=== PATIENT | male | born 1970 ===

== ENCOUNTER 2018-03-02 09:52 | Emergency (ER) | payer BC ==
[2018-03-02 10:22] VITALS: BP 157/80
--- NOTE | 2018-03-02 10:27 | UC ---
Lower Extremity/Ankle HPI - HPI Summary HPI Summary: 47-year-old male comes to clinic today with a chief complaint of an injury to the right great toe. Yesterday he dropped a sheet of plywood on his right great toe. It hurt right away. Pain is increased over the next several hours. He also notices a bruise underneath the toenail. Today the pain is slightly less. Pain is worse with ambulation better with rest and elevation. There's been no bleeding. - History of Current Complaint Chief Complaint: UCLowerExtremity Stated Complaint: FOOT INJURY Time Seen by Provider: 03/02/18 10:17 Pain Intensity: 7 - Allergies/Home Medications Allergies/Adverse Reactions: Allergies Allergy/AdvReac Type Severity Reaction Status Date / Time No Known Allergies Allergy Verified 03/02/18 10:21 Home Medications: Home Medications Ibuprofen TAB* [Motrin TAB* 400 MG] 400 mg PO Q6H PRN 03/02/18 [History Confirmed 03/02/18] PMH/Surg Hx/FS Hx/Imm Hx Previously Healthy: Yes - Surgical History Surgical History: None - Family History Known Family History: Positive: Non-Contributory - Social History Alcohol Use: Daily Alcohol Amount: 1-2 drinks/day Substance Use Type: None Smoking Status (MU): Never Smoked Tobacco Review of Systems All Other Systems Reviewed And Are Negative: Yes Constitutional: Positive: Negative Skin: Positive: Bruising - see hpi Eyes: Positive: Negative ENT: Positive: Negative Respiratory: Positive: Negative Cardiovascular: Positive: Negative Gastrointestinal: Positive: Negative Motor: Positive: Negative Neurovascular: Positive: Negative Musculoskeletal: Positive: Other: - see hpi Neurological: Positive: Negative Psychological: Positive: Negative Is Patient Immunocompromised?: No Physical Exam Triage Information Reviewed: Yes Appearance: Well-Appearing, No Pain Distress, Well-Nourished Vital Signs: Initial Vital Signs Temp 97.8 F 03/02/18 10:11 Pulse 56 03/02/18 10:11 Resp 16 03/02/18 10:11 BP 157/80 03/02/18 10:11 Pulse Ox 98 03/02/18 10:11 Vital Signs Reviewed: Yes Eye Exam: Normal Eyes: Positive: Conjunctiva Clear Neck exam: Normal Neck: Positive: Supple Respiratory: Positive: No respiratory distress Musculoskeletal: Positive: Strength Intact, ROM Intact, Other: - Right great toe with mild swelling and tender to palpation on dorsum. FROM. Eccymosis under great toe nail that extends to lateral aspect of the distal toe nail without any active bleeding. Neurological Exam: Normal Neurological: Positive: Alert, Muscle Tone Normal Psychological Exam: Normal Psychological: Positive: Age Appropriate Behavior Skin: Positive: Other - eccymosis under right great toe nail Lower Extremity Course/Dx - Course Course Of Treatment: Be ecchymosis underneath the great toe nail does extend to the end of the toenail. Appears the ecchymosis is in the tissue rather than a subungual hematoma. Also the patient's pain is slightly improved therefore I did not perform nail trephination. Order Information: TOE RIGHT GREAT. Accession Number: [id number]. CPT: 78444. Indication: Crush injury to RIGHT great toe yesterday. Pain. Comparison: No relevant prior exams available on the [facility] for comparison. Technique: 3 views of the RIGHT great toe. REPORT AND IMPRESSION: #. Soft tissue edema about the great toe distally. No subcutaneous emphysema or. conspicuous foreign body. Accessory ossicle at the volar aspect of the IP joint. Negative. for fracture or malalignment. . <Electronically signed by David Kerr MD in OV> 03/02/18 1050. I discussed the x-ray report with the patient. The reading as no fracture. Here in clinic report on a postop shoe and he is neurovascularly intact after the nurse put on a postop shoe. Plan is ice elevation and use the postop shoe as needed. If the toe is not improving as expected he is to follow-up with orthopedics. - Differential Dx/Diagnosis Provider Diagnosis: Crushing injury of right great toe Discharge - Sign-Out/Discharge Documenting (check all that apply): Patient Departure All imaging exams completed and their final reports reviewed: Yes - Discharge Plan Condition: Stable Disposition: HOME Patient Education Materials: Crush Injury (ED) Referrals: Darrell Ellis MD [Primary Care Provider] - Chaparro Hager MD [Medical Doctor] - Additional Instructions: FOLLOW UP WITH ORTHOPEDICS, DR HAGER, IF NOT COMPLETELY IMPROVED. GET RECHECKED FOR ANY WORSENING OF YOUR CONDITION OR QUESTIONS OR CONCERNS. - Billing Disposition and Condition Condition: STABLE Disposition: Home
== END 2018-03-02 11:26 | disposition home or self-care (01) ==
LOC: UCEAST 09:52
DX: S90.111A Contusion of right great toe without damage to nail, initial encounter (principal); W20.8XXA Other cause of strike by thrown, projected or falling object, initial encounter; Y92.9 Unspecified place or not applicable
CPT/HCPCS: 99212; G0463

== ENCOUNTER 2018-03-08 14:52 | Emergency (ER) | payer BC ==
[2018-03-08 15:17] VITALS: BP 118/74
--- NOTE | 2018-03-08 15:33 | UC ---
Lower Extremity/Ankle HPI - HPI Summary HPI Summary: 47-year-old male comes to clinic today with chief complaint of right great toe swelling. On March 02, 2018 he dropped an object on his right great toe. He was seen here and had an x-ray which did not show any signs of fracture. Since that time there's been some more swelling in the proximal great toe nail bed. Pain is mild. Pain is worse with palpation and ambulation. With the swelling the patient was concerning might lose the toenail and wondered if there was anything else that can be done about it. No fevers or chills no drainage. - History of Current Complaint Chief Complaint: UCLowerExtremity Stated Complaint: TOE INJURY Time Seen by Provider: 03/08/18 15:15 Pain Intensity: 0 - Allergies/Home Medications Allergies/Adverse Reactions: Allergies Allergy/AdvReac Type Severity Reaction Status Date / Time No Known Allergies Allergy Verified 03/08/18 15:13 PMH/Surg Hx/FS Hx/Imm Hx Previously Healthy: Yes - Surgical History Surgical History: None - Family History Known Family History: Positive: Non-Contributory - Social History Alcohol Use: Daily Alcohol Amount: 1-2 drinks/day Substance Use Type: None Smoking Status (MU): Never Smoked Tobacco Review of Systems All Other Systems Reviewed And Are Negative: Yes Constitutional: Positive: Negative Skin: Positive: Bruising - rt great toe Eyes: Positive: Negative ENT: Positive: Negative Respiratory: Positive: Negative Cardiovascular: Positive: Negative Gastrointestinal: Positive: Negative Motor: Positive: Negative Neurovascular: Positive: Negative Musculoskeletal: Positive: Other: - see hpi Neurological: Positive: Negative Psychological: Positive: Negative Is Patient Immunocompromised?: No Physical Exam Triage Information Reviewed: Yes Appearance: Well-Appearing, No Pain Distress, Well-Nourished Vital Signs: Initial Vital Signs Temp 98.6 F 03/08/18 15:13 Pulse 56 03/08/18 15:13 Resp 18 03/08/18 15:13 BP 118/74 03/08/18 15:13 Pulse Ox 98 03/08/18 15:13 Vital Signs Reviewed: Yes Eye Exam: Normal Eyes: Positive: Conjunctiva Clear Neck exam: Normal Neck: Positive: Supple Respiratory: Positive: No respiratory distress Musculoskeletal: Positive: Other: - Right great toe has some swelling underneath the great toenail that appears to be blood. There is no drainage. The proximal aspect of the great toenail is raised up and it appears that it will be coming off on its own in the near future. There is mild erythema at the base of the toenail no pus no streaking. Normal capillary refill toe is got full range of motion. Neurological Exam: Normal Neurological: Positive: Alert, Muscle Tone Normal Psychological Exam: Normal Psychological: Positive: Age Appropriate Behavior Skin: Positive: Other - eccymosis rt great toe Lower Extremity Course/Dx - Course Course Of Treatment: At this time we will stop start Keflex for the possibility of infection however it's not obvious that there is an infection at this time. We discussed my expectation that the toenail would come off on its own. Plan is to keep it protected and follow-up with podiatry. Return here if anything gets worse or any questions or concerns. - Differential Dx/Diagnosis Provider Diagnosis: Contusion of right great toe with damage to nail Discharge - Sign-Out/Discharge Documenting (check all that apply): Patient Departure All imaging exams completed and their final reports reviewed: No Studies - Discharge Plan Condition: Stable Disposition: HOME Prescriptions: Cephalexin CAP* [Keflex CAP*] 500 mg PO QID #40 cap Mupirocin 1 applic TP BID #22 gm Patient Education Materials: Nail Avulsion (ED), Crush Injury (ED) Referrals: Darrell Ellis MD [Primary Care Provider] - Milly Arroyo DPM [Doctor of Podiatric Medicine] - Additional Instructions: FOLLOW UP WITH PODIATRY. GET RECHECKED FOR ANY WORSENING OF YOUR CONDITION OR QUESTIONS OR CONCERNS. - Billing Disposition and Condition Condition: STABLE Disposition: Home
== END 2018-03-08 15:49 | disposition home or self-care (01) ==
LOC: UCEAST 14:52
DX: S90.211A Contusion of right great toe with damage to nail, initial encounter (principal); W20.8XXA Other cause of strike by thrown, projected or falling object, initial encounter; Y92.9 Unspecified place or not applicable
CPT/HCPCS: 99212; G0463

== ENCOUNTER 2019-05-09 11:58 | Emergency (ER) | payer BC ==
[2019-05-09 15:22] VITALS: BP 114/64
--- NOTE | 2019-05-09 15:29 | UC ---
Respiratory Complaint HPI - HPI Summary HPI Summary: 49 yo male presents with flu-like symptoms. He tells me that for the last 5 days he has had a dry cough and sore throat. Today developed body aches, fatigue , and fever. He has been taking robitussin DM and tylenol with good relief. Nothing OTC today. Did not get a flu shot this year. Denies rash, SOB, chest pain, abdominal pain, n/v - History of Current Complaint Chief Complaint: UCGeneralIllness Stated Complaint: COUGH Time Seen by Provider: 05/09/19 15:28 Hx Obtained From: Patient Onset/Duration: Gradual Onset Severity Initially: Mild Severity Currently: Mild Pain Intensity: 4 Pain Scale Used: 0-10 Numeric Character: Cough: Nonproductive - Allergies/Home Medications Allergies/Adverse Reactions: Allergies Allergy/AdvReac Type Severity Reaction Status Date / Time No Known Allergies Allergy Verified 05/09/19 15:22 Home Medications: Home Medications Oseltamivir CAP* [Tamiflu CAP*] 75 mg PO BID #10 cap 05/09/19 [Rx] PMH/Surg Hx/FS Hx/Imm Hx - Additional Past Medical History Additional PMH: None - Surgical History Surgical History: None - Family History Known Family History: Positive: Non-Contributory - Social History Lives: With Family Alcohol Use: Daily Alcohol Amount: 1-2 drinks/day Substance Use Type: None Smoking Status (MU): Never Smoked Tobacco Review of Systems All Other Systems Reviewed And Are Negative: No Constitutional: Positive: Fever, Fatigue, Other - Body aches Skin: Positive: Negative Eyes: Positive: Negative ENT: Positive: Sore Throat Respiratory: Positive: Cough Cardiovascular: Positive: Negative Gastrointestinal: Positive: Negative Neurological/Mental Status: Positive: Negative Psychological: Positive: Negative Physical Exam - Summary Physical Exam Summary: GENERAL: NAD. WDWN. No pain distress. SKIN: No rashes, sores, lesions, or open wounds. HEENT: Head: AT/NC Eyes: EOM intact. Conjunctiva clear without inflammation or discharge. Ears: Hearing grossly normal. TMs intact, no bulging, erythema, or edema. Nose: Nasal mucosa pink and moist. NTTP maxillary and frontal sinus. Throat: Posterior oropharynx without exudates, erythema, or tonsillar enlargement. Uvula midline. NECK: Supple. Nontender. No lymphadenopathy. CHEST: CTAB. No r/r/w. No accessory muscle use. Breathing comfortably and in no distress. CV: RRR. Pulses intact. Cap refill <2seconds NEURO: Alert. PSYCH: Age appropriate behavior. Triage Information Reviewed: Yes Vital Signs: Initial Vital Signs Temp 100.4 F 05/09/19 15:18 Pulse 82 05/09/19 15:18 Resp 18 05/09/19 15:18 BP 114/64 05/09/19 15:18 Pulse Ox 96 05/09/19 15:18 Laboratory Tests 05/09/19 15:31 Influenza A (Rapid) Positive H Vital Signs Reviewed: Yes Respiratory Course/Dx - Course Course Of Treatment: POC flu positive. Flu symptoms started today - rx for tamiflu - Differential Dx/Diagnosis Provider Diagnosis: Influenza Discharge ED - Sign-Out/Discharge Documenting (check all that apply): Patient Departure All imaging exams completed and their final reports reviewed: No Studies - Discharge Plan Condition: Stable Disposition: HOME Prescriptions: Oseltamivir CAP* [Tamiflu CAP*] 75 mg PO BID #10 cap Patient Education Materials: Influenza (ED) Referrals: Darrell Ellis MD [Primary Care Provider] - Additional Instructions: Most people with the flu recover within one to two weeks without treatment. However, serious complications of the flu can occur. Go to the ER immediately if you: -- You feel short of breath or have trouble breathing -- You have pain or pressure in your chest or stomach -- You have signs of being dehydrated, such as dizziness when standing or not passing urine -- You feel confused -- You cannot stop vomiting or you cannot drink enough fluids There are several groups of people who are at increased risk for flu complications. These include women, young children (<5 years of age and especially <2 years of age), people older than 65 years of age, and people with certain diseases such as chronic lung disease (such as asthma), heart disease, diabetes, immunosuppressing conditions (such as HIV infection or transplantation), and some other diseases. Treat symptoms Treating the symptoms of influenza can help you to feel better but will not make the flu go away faster. -- Rest until the flu is fully resolved, especially if the illness has been severe. -- Fluids Drink enough fluids so that you do not become dehydrated. One way to manager plan if you are drinking enough is to look at the color of your urine. Normally, urine should be light yellow to nearly colorless. If you are drinking enough, you should pass urine every three to five hours. -- Acetaminophen (sample brand name: Tylenol) can relieve fever, headache, and muscle aches. Aspirin and medicines that include aspirin (eg, bismuth subsalicylate [sample brand name: Pepto-Bismol]) are not recommended for children under 18 because aspirin can lead to a serious disease called Betty syndrome. -- Cough medicines are not usually helpful; cough usually resolves without treatment. We do not recommend cough or cold medicine for children under age 6 years. Antiviral treatment Antiviral medicines can be used to treat or prevent influenza. When used as a treatment, the medicine does not eliminate flu symptoms, although it can reduce the severity and duration of symptoms by about one day. Not every person with influenza needs an antiviral medicine, but some people do; the decision is based upon several factors. If you are severely ill and/or have risk factors for developing complications of influenza, you will need an antiviral agent. People who are only mildly ill and have no risk factors for complications usually do not need to be treated with antiviral medication. - Billing Disposition and Condition Condition: STABLE Disposition: Home
[2019-05-09 15:39] LABS: Influenza A Molecular POSITIVE (Negative)
== END 2019-05-09 15:56 | disposition home or self-care (01) ==
LOC: UCEAST 11:58
DX: J11.1 Influenza due to unidentified influenza virus with other respiratory manifestations (principal)
CPT/HCPCS: 99212; G0463